=== PATIENT | male | born 1975 | race Caucasian/White ===

== ENCOUNTER 2021-09-23 05:53 | Emergency (ER) | payer OTHER, SELFPAY ==
--- NOTE | ~2021-09-23 | CT_ITS ---
EXAMINATION: CT abdomen pelvis w con DATE: 09/23/2021 07:18 INDICATION: Abdominal pain TECHNIQUE: Computed tomography (CT) of the abdomen and pelvis was performed without intravenous contr ast. Automated exposure control and iterative reconstruction technique were employed. The dose-length product was 861.54 mGy-cm. COMPARISON: None FINDINGS: Lung bases are clear. Heart size is normal. No pericardial or pleural effusion. Gallbladder is disten ded to 4 cm in maximal diameter with calcified gallstone at the neck of the gallbladder. There is how ever no gallbladder wall thickening or pericholecystic inflammatory stranding to suggest acute cholec ystitis. Liver, spleen, pancreas, left adrenal gland and bilateral kidneys are normal. 8 mm adrenal n odule statistically most likely to represent an adenoma. Bowels including the appendix are normal. Bl adder is normal. Small fat-containing left inguinal hernia. No free intraperitoneal gas or fluid. No pathologically enlarged abdominal or pelvic lymphadenopathy. There is calcified atherosclerosis of th e aorta and bilateral common iliac arteries. L5 spondylolysis with bilateral pars interarticularis de fects, 1.3 cm anterolisthesis on S1 and severe associated disc height loss. IMPRESSION: 1. Potentially impacted gallstone at the neck the mildly distended gallbladder could not exclude cecilia y acute cholecystitis but there is no wall thickening or pericholecystic inflammatory stranding to mo re specifically suggest this. Correlate for Rice sign and if clinically indicated HIDA scan could b e obtained for further evaluation. Reviewed, dictated and finalized at location A. IMPRESSION: 1. Potentially impacted gallstone at the neck the mildly distended gallbladder could not exclude early acute cholecystitis but there is no wall thickening or pericholecystic inflammatory stranding to more specifically suggest this. Corre late for Rice sign and if clinically indicated HIDA scan could be obtained fo r further evaluation.
[2021-09-23 05:57] VITALS: BP 184/96; PULSE 96; RESP 18; TEMP 36.9; O2SAT 100
--- NOTE | 2021-09-23 06:23 | ED.ABDPAIN ---
HPI - Abdominal Pain General Chief Complaint: Abdominal Pain <Singh Brian DO Last Filed: 09/23/21 06:24> Stated Complaint: n/v abd pain <Singh Brian DO Last Filed: 09/23/21 06:24> Time Seen by Provider: 09/23/21 06:02 <Singh Brian DO - Last Filed: 09/23/21 06:24> Source: RN notes reviewed <Singh Brian DO - Last Filed: 09/23/21 06:24> History of Present Illness HPI narrative: Patient presents emergency department from home for abdominal pain. Patient states pain began approximately 8 hours ago. Pain is located across the upper abdomen and described as sharp and stabbing in nature. Associated with numerous episodes of nausea and vomiting. States he did take ibuprofen at home for pain with no relief. Denies any fevers or chills, chest pain, shortness of breath diarrhea or any other symptoms <Singh Brian DO Filed: 09/23/21 06:24> Related Data Allergies/Adverse Reactions: Allergies Allergy/AdvReac Type Severity Reaction Status Date / Time Penicillins Allergy Rash Verified 09/23/21 06:19 <Singh Brian DO Last Filed: 09/23/21 06:24> Review of Systems Review of Systems: Gen.: Denies fevers or chills ENT: Denies congestion Respiratory: Denies shortness of breath or cough CV: Denies chest pain or palpitations GI: See HPI Musculoskeletal: Denies back pain or muscle pain Neuro: Denies numbness, tingling, weakness or focal weakness Skin: Denies rash Except as documented, all other systems reviewed and negative <Singh Brian DO Last Filed: 09/23/21 06:24> [facility] Past Medical History Medical History: Medical History Hypertension <Singh Brian DO - Last Filed: 09/23/21 06:24> Social History Social History: Social History Smoking status: Former smoker <Singh Brian DO - Last Filed: 09/23/21 06:24> Exam Narrative: APPEARANCE: No acute distress, nontoxic, resting in bed HEENT: Normocephalic, atraumatic, OMM RESPIRATORY: No respiratory distress, clear to auscultation bilaterally with no rhonchi wheezing or rales CARDIOVASCULAR: RRR s murmur ABDOMINAL: Soft nondistended tender palpation epigastric and right upper quadrant left upper quadrant no tenderness in right lower quadrant left lower quadrant no rebound or guarding MUSCULOSKELETAl: Moves all extremities. No clubbing, cyanosis or edema. NEURO: Awake and alert. Following commands, speech normal, no focal deficits SKIN:: Warm, dry. Normal Color PSYCHIATRIC: Normal affect/mood <Singh Brian DO - Last Filed: 09/23/21 06:24> Course Course Emergency Course: Patient informed of results. Dr. Baker is come to the ER to evaluate the patient. Patient to be discharged home with pain medication, low-fat diet, and antibiotics. He will follow up in clinic. <Gavin Benavidez MD - Last Filed: 09/23/21 09:55> Vital Signs Vital signs: Vital Signs Temperature 98.5 F 09/23/21 05:57 Pulse Rate 96 09/23/21 05:57 Respiratory Rate 18 09/23/21 05:57 Blood Pressure 184/96 H 09/23/21 05:57 Pulse Oximetry 100 09/23/21 05:57 Temperature 98.5 F 09/23/21 05:57 Pulse Rate 90 09/23/21 09:15 Respiratory Rate 18 09/23/21 09:15 Blood Pressure 174/112 H 09/23/21 09:15 Pulse Oximetry 100 09/23/21 09:15 <Singh Brian DO - Last Filed: 09/23/21 06:24> Vital Signs Temperature 98.5 F 09/23/21 05:57 Pulse Rate 96 09/23/21 05:57 Respiratory Rate 18 09/23/21 05:57 Blood Pressure 184/96 H 09/23/21 05:57 Pulse Oximetry 100 09/23/21 05:57 Temperature 98.5 F 09/23/21 05:57 Pulse Rate 90 09/23/21 09:15 Respiratory Rate 18 09/23/21 09:15 Blood Pressure 174/112 H 09/23/21 09:15 Pulse Oximetry 100 09/23/21 09:15 <Gavin Benavidez MD - Last Filed: 09/23/21 09:55> MDM - Abdomina
[2021-09-23 06:24] LABS: Basophils Absolute Auto 0.1 K/mm3 (0.0-0.1); Basophils Percent Auto 0.8 % (0.2-1.2); Eosinophils Absolute Auto 0.1 K/mm3 (0-0.3); Eosinophils Percent Auto 0.8 % (0-4.4); Hematocrit 44.6 % (42.0-52.0); Hemoglobin 15.4 g/dL (14.0-18.0); Immature Granulocyte Absolute 0.06 K/mm3 (0.00-0.031); Immature Granulocyte Percent A 0.6 % (0-0.5); Lymphocytes Absolute Auto 1.24 K/mm3 (0.9-3.2); Lymphocytes Percent Auto 11.7 % (18.3-44.2); Mean Corpuscular HGB Conc 34.5 g/dl (32-36); Mean Corpuscular Hemoglobin 31.9 pg (26-34); Mean Corpuscular Volume 92.3 fl (80-100); Mean Platelet Volume 9.1 fl (7.4-10.4); Monocytes Absolute Auto 0.4 K/mm3 (0.1-0.6); Monocytes Percent Auto 3.8 % (2.6-8.5); Neutrophils Absolute Auto 8.8 K/mm3 (1.3-6.7); Neutrophils Percent Auto 82.3 % (45.5-73.1); Platelet Count Result 307 k/mm3 (150-375); Red Blood Count 4.83 M/mm3 (4.6-6.20); Red Cell Distribution Width 12.5 % (11.5-14.5); White Blood Count 10.6 K/mm3 (4.5-10.0)
[2021-09-23 06:27] LABS: Add Urine Microscopic? YES; Appearance Urine Clear (Clear); Bilirubin Urine Negative (Negative); Blood Urine Negative (Negative); Color Urine Yellow (Yellow); Glucose Urine UA Negative (Negative); Ketones Urine Negative (Negative); Leukocyte Esterase Ur Negative LEU/UL (Negative); Mucus Urine Rare /lpf; Nitrate Urine Negative (Negative); Protein Urine 1+ mg/dL (Negative); RBC Urine 0-2 /hpf (0-2); Specific Grav Ur 1.023 (1.001-1.035); Urobilinogen Urine Negative mg/dL (<2.0); WBC Urine 0-3 /hpf
[2021-09-23] MEDS: ONDANSETRON INJ 4 MG/2 ML VIAL IV PUSH (06:31)
[2021-09-23] MEDS: MORPHINE SULFATE (*CRX) 4 MG/ML INJ IV PUSH ×2 (06:31→09:10)
[2021-09-23] MEDS: SODIUM CHLORIDE 0.9% IV 1,000 ML 999 ML IV CONT (06:32)
[2021-09-23 06:58] LABS: Alanine Aminotransferase 30 U/L (4-50); Albumin Level 4.6 g/dL (3.5-5.1); Alkaline Phosphatase 97 U/L (38-126); Anion Gap 6 mmol/L (8-16); Aspartate Amino Transferase 33 U/L (17-59); Bilirubin,Total 0.6 mg/dL (0.2-1.3); Blood Urea Nitrogen 16 mg/dL (9-20); Calcium 9.4 mg/dL (8.4-10.2); Carbon Dioxide 28 mmol/L (22-30); Chloride 104 mmol/L (98-107); Estimated CRCL calculation 102 ml/min; Estimated Glomerular Filt Rate > 60; Glucose 152 mg/dL (65-110); Lipase 56 U/L (23-300); Potassium 4.2 mmol/L (3.4-5.0); Sodium 138 mmol/L (137-145)
[2021-09-23 09:15] VITALS: BP 174/112; PULSE 90; RESP 18; O2SAT 100
--- NOTE | 2021-09-23 09:20 | WPDCN ---
Assessment and Plan Assessment and plan (1) Acute calculous cholecystitis: Code(s): K80.00 - Calculus of gallbladder with acute cholecystitis without obstruction Status: Acute Assessment and Plan: pain control, abx, plan to do urgent cholecystectomy as outpt next wk, low fat diet HPI Data of Consult Date/Time: 09/23/21 09:20 Primary Care Provider: Jayro Hawthorne, MBryce Consult Narrative Narrative: Deejay Joshi is a 46 year old male presenting to ED c/o severe RUQ/epigastric abd pain. Pt reports pain started acutely last night and was severe, unrelenting. Pt reports pain as sharp, stabbing. Pt had assoc N/V, bloating. Pt denies previous episodes. Review of Systems Constitutional: Constitutional: Reports anorexia, Denies chills, Denies fever(s), Denies lethargy, Denies malaise, Reports poor appetite, Denies weight gain and Denies weight loss Eyes: Eyes: Reports no additional eye complaints ENT: Reports system reviewed and no additional complaints, except as documented Cardiovascular: Cardiovascular: Reports no additional cardiovascular complaints Respiratory: Respiratory: Reports no additional respiratory complaints Gastrointestinal: Gastrointestinal: Reports as per HPI, Reports abdominal pain, Reports bloating, Reports GI cramping, Reports heartburn, Denies diarrhea, Denies loose stools, Reports nausea and Reports vomiting Genitourinary: Genitourinary: Reports no additional male genitourinary complaints Musculoskeletal: Musculoskeletal: Reports no additional musculoskeletal complaints Integumentary/Breasts: Skin/Breast: Reports system reviewed and no additional complaints, except as docu Neurologic: Reports system reviewed and no additional complaints, except as documented Psychiatric: Psychiatric: Reports no additional psychiatric complaints Endocrine: Endocrine: Reports no additional endocrine complaints Hematologic/Lymphatic: Hematologic/Lymphatic: Reports no additional hematologic/lymphatic complaints Allergic/Immunologic: Allergic/Immunologic: Reports no additional allergic/immunologic complaints [facility] Past Medical History Medical History Hypertension Social History Social History Smoking status: Former smoker Comments PSH - no abd surgeries FH - no known biliary dz Meds Home Medications and Allergies Allergies Allergy/AdvReac Type Severity Reaction Status Date / Time Penicillins Allergy Rash Verified 09/23/21 06:19 Vital Signs Vital Signs - 24 hr 09/23/21 05:57 09/23/21 09:15 Temperature 36.9 C Pulse Rate 96 90 Respiratory Rate 18 18 Blood Pressure 184/96 H 174/112 H Pulse Oximetry 100 100 Exam Const: General: cooperative, healthy appearing, acute distress mild and uncomfortable Nutritional Appearance: obese Orientation/consciousness: patient oriented x3 Limitations: no limitations HENMT: Head: normal to inspection, normocephalic and atraumatic Ears: hearing grossly normal bilaterally General nose exam: Normal external nose present Face and sinus: normal facial exam Mouth: Yes Normal oral and palatal mucosa present and Yes moist mucous membranes abnormal Eyes: General: appearance normal, both eyes and all related structures Pupils: Equal, round and reactive pupils present EOM: EOMs intact bilaterally Neck: Neck: normal visual inspection, full ROM and no lymphadenopathy Chest: Chest palpation & inspection: normal inspection of the chest Resp: Effort & Inspection: normal respiratory effort Auscultation: clear to auscultation bilaterally Cardio: Rate: regular rate Rhythm: regular rhythm GI: Inspection: normal to inspection and distended GI Palp: Yes Soft to palpation, Yes Tenderness to palpation present (GI), No Guarding due to palpation present (GI) and No Rigid due to palpation Skin: General skin exam: normal color and no rashes
== END 2021-09-23 10:22 | disposition home or self-care (01) ==
PROVIDERS: Emergency Provider Emergency Medicine; PCP Family Medicine
DX: K80.00 Calculus of gallbladder with acute cholecystitis without obstruction (principal); I10 Essential (primary) hypertension
CPT/HCPCS: 36415; 74177; 80053; 81001; 83690; 85025; 96361; 96374; 96375; 96376; 99284; J2270; J2405; J7030; Q9967

== ENCOUNTER 2025-10-25 15:00 | Outpatient (CLI) | payer BC, SELFPAY ==
--- NOTE | ~2025-10-25 | XR_ITS ---
EXAMINATION: XR foot LT 2V, 10/25/2025 15:35 LICENSED THERAPIST HISTORY: Ankylosing spondylitis lumbar region COMPARISON: No comparisons available. Findings: No acute fracture or malalignment. No significant degenerative changes. Soft tissues unremarkable. Impression: No acute fracture or malalignment. Reviewed, dictated and finalized at location P. NSED THERAPIST Impression: No acute fracture or malalignment.
--- NOTE | ~2025-10-25 | XR_ITS ---
XR lumbar spine min 4V Indication: Ankylosing spondylitis lumbar region Comparison: None Findings: Grade 1 almost grade 2 anterolisthesis of L5 on S1 with bilateral spondylolytic its. Severe loss of disc height at L5-S1. Moderate loss of disc height at L4-5. Soft tissues unremarkable Impression: No acute abnormality. Reviewed, dictated and finalized at location P. ER CHIEF DELIVERY Impression: No acute abnormality.
--- NOTE | ~2025-10-25 | XR_ITS ---
EXAMINATION: XR sacroiliac joints min 3V, 10/25/2025 15:35 VENEER TAPER HISTORY: Ankylosing spondylitis lumbar region COMPARISON: No comparisons available. Findings: No acute fracture or malalignment. There is sclerosis of the sacroiliac joints, no erosions, no bridging osteophyte formation identified. Soft tissues unremarkable. Impression: No acute fracture or malalignment. Reviewed, dictated and finalized at location P. ER TAPER Impression: No acute fracture or malalignment.
--- NOTE | ~2025-10-25 | XR_ITS ---
EXAMINATION: XR hand RT 2V DATE: 10/25/2025 16:03 INDICATION: Ankylosing spondylitis TECHNIQUE: Right hand x-rays were obtained. COMPARISON: None. FINDINGS: No fracture subluxation or dislocation. Mild osteoarthritic degenerative changes in the distal interphalangeal joints. Small focal area of soft tissue fullness also present present along the radial aspect of the index finger distal interphalangeal joint seen on the frontal view. No acute or a ggressive bony process. IMPRESSION: 1. Osteoarthritic appearing degenerative changes in the distal interphalangeal joints. 2. Focal area of soft tissue fullness adjacent to the index finger distal interphalangeal joint. Correlate with clinical exam. Reviewed, dictated and finalized at location A. R OPERATOR IMPRESSION: 1. Osteoarthritic appearing degenerative changes in the distal interphalangeal joints. 2. Focal area of soft tissue fullness adjacent to the index finger distal inter phalangeal joint. Correlate with clinical exam.
--- NOTE | ~2025-10-25 | XR_ITS ---
EXAMINATION: XR hand LT 2V DATE: 10/25/2025 16:03 INDICATION: Ankylosing spondylitis TECHNIQUE: Left hand x-rays were obtained. COMPARISON: None. FINDINGS: Bones and soft tissues appear within normal limits. IMPRESSION: 1. Bones and soft tissues of the left hand appear within normal limits. Reviewed, dictated and finalized at location A. TROOM REPORTER
--- NOTE | ~2025-10-25 | XR_ITS ---
EXAMINATION: XR foot RT 2V, 10/25/2025 15:35 BUCKLE COVERER HISTORY: Ankylosing spondylitis lumbar region COMPARISON: No comparisons available. Findings: No acute fracture or malalignment. No significant degenerative changes. Soft tissues unremarkable. Impression: No acute fracture or malalignment. Reviewed, dictated and finalized at location P. LE COVERER Impression: No acute fracture or malalignment.
--- NOTE | ~2025-10-25 | XR_ITS ---
EXAMINATION: XR chest 2V DATE: 10/25/2025 16:03 INDICATION: Ankylosing spondylitis TECHNIQUE: Frontal and lateral views of the chest were obtained. COMPARISON: None. FINDINGS: Minimal fibrotic and atelectatic changes in the left lung base. The remaining lung ty are clear. Heart size normal. Bones and upper abdomen unremarkable. IMPRESSION: 1. Probable mild fibrotic and/or atelectatic changes in the left lung base. Reviewed, dictated and finalized at location A. T TAILER
== END 2025-10-25 15:01 | disposition home or self-care (01) ==
LOC: MICIMG 15:10
PROVIDERS: Visit Provider Internal Medicine
DX: M45.6 Ankylosing spondylitis lumbar region (principal); M19.041 Primary osteoarthritis, right hand
CPT/HCPCS: 71046; 72110; 72202; 73120; 73620